=== PATIENT | male | born 1945 | race Caucasian/White ===

== ENCOUNTER → 2016-02-29 | Outpatient (REF) | payer BC | END | disposition home or self-care (01) | LOC: M LAB REF 13:25 | PROVIDERS: ATTEND Neurological Surgery | DX: Z01.812 Encounter for preprocedural laboratory examination (principal); M47.16 Other spondylosis with myelopathy, lumbar region ==

== ENCOUNTER → 2016-03-06 | Outpatient (CLI) | payer BC ==
--- NOTE | 2016-03-06 15:45 | REP ---
MR LUMBAR SPINE WITHOUT CONTRAST: HISTORY: Spondylosis. Decreased signal intensity on T2-weighted images is present in the lumbar intervertebral discs. The discs are decreased in height. These findings are consistent with disc degeneration. A diffuse disc bulge is present at the L1-2 level. There is minimal compression of the thecal sac. There is hypertrophy of the posterior articulating facets. There is compression of the right L1 nerve in the neural foramen. The left L1 nerve exits the neural foramen without compression. A diffuse disc bulge is present at the L2-3 level. There is hypertrophy of the ligamenta flava and posterior articulating facets. These findings produce moderate central canal stenosis. There is compression of the right L2 nerve in the neural foramen. The L2 nerve exits the neural foramen without compression. A diffuse disc bulge is present at the L3-4 level. There is hypertrophy of the ligamenta flava and posterior articulating facets. These findings produce severe central canal stenosis. There is compression of the L3 nerves in the neural foramina. A diffuse disc bulge and small central disc protrusion are present at the L4-5 level. There is hypertrophy of the ligamenta flava and posterior articulating facets. These findings produce severe central canal stenosis. There is compression of the L4 nerves in the neural foramina. A diffuse disc bulge and small central disc protrusion are present at the L5-S1 level. There is minimal compression of the thecal sac. There is hypertrophy of the posterior articulating facets. There is compression of the L5 nerves in the neural foramina. The conus medullaris is normal in appearance terminating at the level of the T12-L1 intervertebral disc. Increased signal intensity on T2-weighted images is present in the endplates of the L2-5 vertebral bodies. This represents degenerative change. There is scoliosis convex to the left. IMPRESSION: 1. Diffuse disc bulge at the L1-2 level with minimal thecal sac compression. There is compression of the right L1 nerve in the neural foramen. 2. Moderate central canal stenosis at the L2-3 level secondary to disc bulge, ligamentous, and facet hypertrophy. There is compression of the right L2 nerve in the neural foramen. 3. Severe central canal stenosis at the L3-4 level secondary to disc bulge, ligamentous, and facet hypertrophy. There is compression of the L3 nerves in the neural foramina. 4. Severe central canal stenosis at the L4-5 level secondary to disc bulge, disc protrusion, ligamentous, and facet hypertrophy. There is compression of the L4 nerves in the neural foramina. 5. Diffuse disc bulge and small central disc protrusion at the L5-S1 level with minimal thecal sac compression. There is compression of the L5 nerves in the neural foramina. Signed by Davonte Davis MD 03/06/2016 04:06 P
== END | disposition home or self-care (01) ==
LOC: M RAD 12:39
PROVIDERS: ATTEND Neurological Surgery
DX: M47.896 Other spondylosis, lumbar region (principal); M51.06 Intervertebral disc disorders with myelopathy, lumbar region; M48.06 Spinal stenosis, lumbar region; M51.17 Intervertebral disc disorders with radiculopathy, lumbosacral region

== ENCOUNTER → 2016-03-11 | Outpatient (CLI) | payer BC ==
[2016-03-11 13:31] LABS: BASO # 0.1 K/mm3 (0.0-0.2); BASO % 0.9 % (0.0-1.0); EOS # 0.4 K/mm3 (0.0-0.50); EOS % 4.6 % (0.0-3.0); LARGE UNSTAINED CELL # 0.2 K/mm3 (0.0-0.4); LYMPH # 2.7 K/mm3 (1.5-4.5); LYMPH % 34.3 % (24.0-44.0); MEAN CORPUSCULAR HEMOGLOBIN 31.9 pg (27.0-33.0); MEAN CORPUSCULAR HGB CONC 34.8 g/dl (32.0-36.5); MEAN CORPUSCULAR VOLUME 91.6 fl (80.0-96.0); MONO # 0.6 K/mm3 (0.0-0.8); MONO % 7.7 % (0.0-5.0); NEUTROPHILS # 3.8 K/mm3 (1.8-7.7); NEUTROPHILS % 49.5 % (36.0-66.0); PLATELET COUNT, AUTOMATED 161 k/mm3 (150-450); RED CELL DISTRIBUTION WIDTH 12.8 % (11.5-14.5); WHITE BLOOD COUNT 7.8 K/mm3 (4.0-10.0)
[2016-03-11 13:35] LABS: INR 0.96
[2016-03-11 14:16] LABS: ALBUMIN 3.7 GM/DL (3.2-5.2); ALBUMIN/GLOBULIN RATIO 1.03 (1.00-1.93); ALKALINE PHOSPHATASE 79 U/L (45-117); ALT/SGPT 20 U/L (12-78); ANION GAP 8 MEQ/L (8-16); AST/SGOT 15 U/L (15-37); BILIRUBIN,TOTAL 0.6 MG/DL (0.2-1.0); BLOOD UREA NITROGEN 11 MG/DL (7-18); CALCIUM LEVEL 9.1 MG/DL (8.8-10.2); CARBON DIOXIDE LEVEL 28 MEQ/L (21-32); CHLORIDE LEVEL 104 MEQ/L (98-107); CREATININE FOR GFR 0.87 MG/DL (0.70-1.30); GLOMERULAR FILTRATION RATE > 60.0 (>49); GLUCOSE, FASTING 126 MG/DL (80-110); POTASSIUM SERUM 4.1 MEQ/L (3.5-5.1); SODIUM LEVEL 140 MEQ/L (136-145); TOTAL PROTEIN 7.3 GM/DL (6.4-8.2)
--- NOTE | 2016-03-11 18:37 | ECGEPIP ---
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
--- NOTE | 2016-03-12 01:31 | REP ---
Clinical: Lipomatosis. Technique: PA and lateral. Comparison: 01/06/2006. Findings: Mediastinum and cardiac silhouette are within normal limits and stable. Lung manjarrez demonstrate chronic-appearing interstitial changes primarily involving the perihilar and bilateral lung bases. Subtle superimposed atelectasis cannot be excluded. However, no discrete focal consolidation, effusion, or pneumothorax appreciated. Skeletal structures demonstrate osteopenia and degenerative changes with mild chronic compression deformity at T7. Impression: Chronic-appearing interstitial changes. Cannot exclude subtle basilar atelectasis. Signed by Jorge Luis Diego MD 03/12/2016 01:22 A
== END | disposition home or self-care (01) ==
LOC: M LAB 11:54
PROVIDERS: ATTEND Neurological Surgery
DX: E88.2 Lipomatosis, not elsewhere classified (principal); J98.4 Other disorders of lung

== ENCOUNTER → 2016-04-11 | Day surgery (SDC) | payer BC, MEDICARE ==
[~2016-04-11] VITALS: Ht 165.1 cm; Wt 94.3 kg
[~2016-04-11] MED LIST: BACITRACIN PWD 50,000 UNITS VIAL As Ordered ONE; CEFUROXIME SODIUM 1.5 GM in D5W MINI-BAG PLUS 50 ML IV ONE; GLYCOPYRROLATE INJ 0.2 MG/ML 2 ML VIAL As Ordered ONE; LIDOCAINE 2% 5ML JELLY UROJET As Ordered ONE; LIDOCAINE 2% INJ 100 MG/5 ML SDV (FOR ANES.) As Ordered ONE; LIDOCAINE 2% JELLY 30 ML As Ordered ONE; LR 1,000 ML IV SCH; MIDAZOLAM INJ 2 MG/2 ML VIAL (J2250) As Ordered ONE; NEOSTIGMINE 1MG/ML 5 ML SYRINGE (J2710) As Ordered ONE; ONDANSETRON 4MG/2ML VIAL (J2405) As Ordered ONE; PHENYLephrine HCL 500 MCG/5 ML (100MCG/ML) SYRINGE (J2370) As Ordered ONE; PROPOFOL 200 MG/20 ML VIAL As Ordered ONE; ROCURONIUM BROMIDE 50 MG/5 ML VIAL As Ordered ONE; THROMBIN SOLN 20,000 UNITS KIT As Ordered ONE; TIOT18INH INH; dexameTHASONE 4 MG/ML 1ML VIAL (J1100) IV ONE; fentaNYL 250 MCG/5 ML INJECTION (J3010) As Ordered ONE; methylPREDNISolone SUSP 40 MG/ML (DEPO-medrol) VIAL (J1030) As Ordered ONE
[2016-04-11 13:25] VITALS: BP 121/67
== END ==
LOC: M SDC 06:52
PROVIDERS: ATTEND Neurological Surgery
DX: M47.16 Other spondylosis with myelopathy, lumbar region (principal); Z53.8 Procedure and treatment not carried out for other reasons
CPT/HCPCS: 63030; J0697; J2250; J2370; J2405; J2710; J3010

== ENCOUNTER 2016-04-17 07:34 | Day surgery (SDC) | payer BC, MEDICARE ==
[~2016-04-17] VITALS: Ht 165.1 cm; Wt 92.0 kg
[~2016-04-17 07:34] MED LIST changes: -BACITRACIN PWD 50,000 UNITS VIAL As Ordered ONE; -CEFUROXIME SODIUM 1.5 GM in D5W MINI-BAG PLUS 50 ML IV ONE; -GLYCOPYRROLATE INJ 0.2 MG/ML 2 ML VIAL As Ordered ONE; -LIDOCAINE 2% 5ML JELLY UROJET As Ordered ONE; -LIDOCAINE 2% INJ 100 MG/5 ML SDV (FOR ANES.) As Ordered ONE; -LIDOCAINE 2% JELLY 30 ML As Ordered ONE; -LR 1,000 ML IV SCH; -MIDAZOLAM INJ 2 MG/2 ML VIAL (J2250) As Ordered ONE; -NEOSTIGMINE 1MG/ML 5 ML SYRINGE (J2710) As Ordered ONE; -ONDANSETRON 4MG/2ML VIAL (J2405) As Ordered ONE; -PHENYLephrine HCL 500 MCG/5 ML (100MCG/ML) SYRINGE (J2370) As Ordered ONE; -PROPOFOL 200 MG/20 ML VIAL As Ordered ONE; -ROCURONIUM BROMIDE 50 MG/5 ML VIAL As Ordered ONE; -THROMBIN SOLN 20,000 UNITS KIT As Ordered ONE; -dexameTHASONE 4 MG/ML 1ML VIAL (J1100) IV ONE; -fentaNYL 250 MCG/5 ML INJECTION (J3010) As Ordered ONE; -methylPREDNISolone SUSP 40 MG/ML (DEPO-medrol) VIAL (J1030) As Ordered ONE
[2016-04-17] MEDS ORDERED: dexameTHASONE 4 MG/ML 1ML VIAL (J1100) IV ONE (07:45)
[2016-04-17] MEDS ORDERED: CEFUROXIME SODIUM 1.5 GM in D5W MINI-BAG PLUS 50 ML IV ONE (08:00)
[2016-04-17] MEDS ORDERED: GLYCOPYRROLATE INJ 0.2 MG/ML 2 ML VIAL As Ordered ONE ×2 (08:26→08:27)
[2016-04-17] MEDS ORDERED: LIDOCAINE 2% INJ 100 MG/5 ML SDV (FOR ANES.) As Ordered ONE (08:26)
[2016-04-17] MEDS ORDERED: ROCURONIUM BROMIDE 50 MG/5 ML VIAL As Ordered ONE ×2 (08:26→10:44)
[2016-04-17] MEDS ORDERED: MIDAZOLAM INJ 2 MG/2 ML VIAL (J2250) As Ordered ONE (08:26)
[2016-04-17] MEDS ORDERED: PROPOFOL 200 MG/20 ML VIAL As Ordered ONE (08:26)
[2016-04-17] MEDS ORDERED: fentaNYL 250 MCG/5 ML INJECTION (J3010) As Ordered ONE (08:26)
[2016-04-17] MEDS ORDERED: NEOSTIGMINE 1MG/ML 5 ML SYRINGE (J2710) As Ordered ONE (08:26)
[2016-04-17] MEDS ORDERED: ONDANSETRON 4MG/2ML VIAL (J2405) As Ordered ONE (08:27)
[2016-04-17] MEDS: NICOTINE 14 MG/24 HR TRANSDERMAL TD SCH (09:00)
[2016-04-17] MEDS ORDERED: LR 1,000 ML IV SCH ×2 (09:15→15:30)
[2016-04-17] MEDS ORDERED: THROMBIN SOLN 20,000 UNITS KIT As Ordered ONE (09:23)
[2016-04-17] MEDS ORDERED: methylPREDNISolone SUSP 40 MG/ML (DEPO-medrol) VIAL (J1030) As Ordered ONE (09:23)
[2016-04-17] MEDS ORDERED: BACITRACIN PWD 50,000 UNITS VIAL As Ordered ONE (09:24)
[2016-04-17] MEDS ORDERED: CEFUROXIME INJ 750 MG VIAL (J0697) As Ordered ONE (10:46)
[2016-04-17] MEDS ORDERED: HYDROmorphone HCL 2 MG/ML 1ML VIAL (J1170) As Ordered ONE (11:23)
[2016-04-17] MEDS ORDERED: THROMBIN SOLN 20,000 UNITS KIT XX ONE (11:31)
[2016-04-17] MEDS ORDERED: LEVALBUTEROL 1.25 MG/0.5 ML CONCENTRATE NEB As Ordered ONE (15:29)
[2016-04-17] MEDS ORDERED: ONDANSETRON 4MG/2ML VIAL (J2405) IV PRN (15:30)
[2016-04-17] MEDS ORDERED: MORPHINE 2 MG/ML 1ML SYRINGE IV PRN ×2 (15:30→16:00)
[2016-04-17] MEDS ORDERED: fentaNYL 100 MCG/2 ML INJECTION (J3010) IV PRN (15:30)
[2016-04-17] MEDS ORDERED: ACETAMINOPHEN TAB 650MG DOSE (2X325MG) PO PRN (16:00)
[2016-04-17] MEDS: GABAPENTIN 100 MG CAP PO SCH ×2 (16:00→21:33)
[2016-04-17] MEDS ORDERED: NORCO, ANEXSIA 5/325MG TABLET (HYDROcodone/ACETAMINOPHEN) PO PRN (16:00)
--- NOTE | 2016-04-17 16:51 | REP ---
Partial lumbar spine series: Two views: History: Lumbar spondylosis myelopathy. Intraoperative films. 6 seconds of fluoroscopy time is reported. Findings: Initial AP fluoroscopically obtained last image hold spot radiograph documents a intraoperative probe superimposed on the L4-5 disc level. A second lateral film again in the lat image hold fluoroscopic spot radiographs of the lumbar spine demonstrates an intraoperative probe at the L3-4 disc level. Signed by Prabhu Lares MD 04/17/2016 05:24 P
[2016-04-17] MEDS ORDERED: LEVALBUTEROL 1.25 MG/0.5 ML CONCENTRATE NEB INH ONE (17:00)
[2016-04-17] MEDS ORDERED: DESFLURANE 240 ML INHALANT As Ordered ONE (18:06)
[2016-04-17] MEDS ORDERED: SEVOFLURANE INHAL SOLN 250 ML BTL As Ordered ONE (18:07)
[2016-04-17 18:30] VITALS: BP 154/89
[2016-04-17] MEDS: ceFAZolin SOD 1 GM in D5W MINI-BAG PLUS 50 ML IV SCH (18:52)
[2016-04-17] MEDS: KCL 20MEQ IN D5/0.45NS 1000ML 1,000 ML IV SCH (18:52)
[2016-04-17 19:30] VITALS: BP 134/80
[2016-04-17 20:30] VITALS: BP 122/70
[2016-04-17 21:30] VITALS: BP 118/76
[2016-04-17] MEDS: NORCO, ANEXSIA 5/325MG TABLET (HYDROcodone/ACETAMINOPHEN) PO PRN (21:34)
[2016-04-17 22:30] VITALS: BP 120/65
[2016-04-18] MEDS: ceFAZolin SOD 1 GM in D5W MINI-BAG PLUS 50 ML IV SCH ×2 (00:07→04:11)
[2016-04-18] MEDS: KCL 20MEQ IN D5/0.45NS 1000ML 1,000 ML IV SCH (00:07)
[2016-04-18 04:00] VITALS: BP 115/62
[2016-04-18] MEDS: NORCO, ANEXSIA 5/325MG TABLET (HYDROcodone/ACETAMINOPHEN) PO PRN ×3 (04:11→16:08)
[2016-04-18 06:00] VITALS: BP 104/57
[2016-04-18 06:05] VITALS: O2SAT 93
[2016-04-18] MEDS ORDERED: TIOTROPIUM INHALER/CAPSULE (SPIRIVA) INH SCH (08:00)
--- NOTE | 2016-04-18 08:28 | RO ---
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 at L4/5. Partial facet Rhizotomies L2-L3 through L5-S1 bilaterally. SURGEON: Dr. Robert Rosario LAP POLISHER: Lily Higuera PA-C ANESTHESIA: FINDINGS: Please see my office notes for detailed preoperative evaluation and discussion. The patient was seen in the preoperative area with his . The patient had severe low back and lower extremity pain, both radicular and neurogenic fashion in either of his legs, mostly around L4-L5 distribution, with occasional along S1. The patient claimed he can hardly stand or walk for a few moments before he has to sit down. The patient and his were aware of all options and they understood the salvage nature of the procedure and that he is a high risk candidate for his surgery on account of his clinical and radiological findings and multiple comorbidities. 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 He also was cleared today by the urologist. The patient and his understood the scope, al options, expected outcome, sequel and complications of proposed salvage surgery. Once again, I discussed with them all possible complications of the proposed surgery and they understood no guarantees of any kind could be given and that the risk of surgery included paralysis, meningitis, spinal fluid leakage, persistence or worsening of symptoms, and/or any deficits, failure of surgery, need for multiple surgeries, pulmonary embolism (PE), deep vein thrombosis (DVT), myocardial infarction (OK), infection, bleeding, and/or any catastrophic sequela. The patient once again stated that there is no way he can live with his symptoms and is willing to take any or all risks for any possible benefit. After all matters pertaining to surgery, anesthesia and followup had been discussed with him on many occasions in the past and again today along with his he wished to proceed with surgery. Discussions were carried out in the presence of the neurosurgical PA and his . Once in the operating room, general endotracheal anesthesia was given by the anesthesia service. The area of surgery was prepped and draped in the usual sterile fashion after positioning him prone on the He frame and fluoroscopic table. Once prepped and draped, a skin incision was given centering over the spinous process of L4. C-arm was used to check the location of the spinous process of L4 as the surface and landmarks were all distorted or obscured from his obesity. The lumbodorsal fascia was reached and incised on either side of the midline. Paraspinal muscles were from midline, and held apart with the help of self retaining retractors. The sacrum was visualized. The L3-L4 interspace was thus identified, though it was also later confirmed with perioperative x-rays. There was marked hypertrophy of the exposed facets with redundant capsules. The posterolateral aspect of these redundant capsules and facets were coagulated with bipolar cautery in the hope achieving partial facet arthrotomies at L2-L3 to L5-S1 levels on either side. Attention was then paid at L3-L4 where generous suhail-semi laminectomy was performed on the left side and then interspinous ligament was removed and similar decompression was carried out on the right side. There was marked compression of the exiting nerve roots. The decompression was carried out inferiorly until the origin of the L5 nerve root and also decompression was carried out superiorly and laterally in between the two pedicles to make more room for the exiting L3 nerve root. There was a hard and firm bulging disc, contributing to the stenosis, A very small soft ligamentous bulge of the disc was seen. The thinned out annulus and ligament ligament was then opened and small pieces of degenerative disc material was removed. The disc space was entered and further degenerative disc material was also removed. The findings were worse on the left side. Attention was then paid at L4-L5 where similar findings were seen and a similar procedure was carried out. However, the posterior aspect of the interspinous ligament was preserved. With generous suhail-semi laminectomy, an attempt was made to place the [place] device, though the lamina were thinned out and caused a hairline fracture of the lamina during distraction and thus the device was not placed. During the process of decompression at L3-L4, a small dural tear was encountered which was closed with a couple of #4-0 silk sutures. Hemostasis was checked and secured. Valsalva maneuver did not cause any evidence of CSF leak. The blood loss was between 300 to 400 At this time, the wound was closed in anatomic layers. The patient tolerated the procedure satisfactorily and was sent to the recovery room in stable condition. The operative findings were discussed with the patient's in the waiting room. ALL[place]
[2016-04-18] MEDS: NICOTINE 14 MG/24 HR TRANSDERMAL TD SCH (10:13)
[2016-04-18] MEDS: GABAPENTIN 100 MG CAP PO SCH ×2 (10:13→16:04)
[2016-04-18 14:00] VITALS: BP 102/53
[2016-04-18] MEDS ORDERED: CIPR250T3 PO (15:23)
[2016-04-18] MEDS ORDERED: NORC5TAB PO (15:23)
== END 2016-04-18 16:10 | disposition home or self-care (01) ==
LOC: M MS5PR 07:34 → M SDC 07:34 → UNDOADMIN 18:42 → M MS5PR 18:42 → UNDODISIN 04-18 16:10 → M SDC 04-18 16:10
PROVIDERS: ATTEND Neurological Surgery
DX: M47.26 Other spondylosis with radiculopathy, lumbar region (principal); G97.41 Accidental puncture or laceration of dura during a procedure; J44.9 Chronic obstructive pulmonary disease, unspecified; E66.9 Obesity, unspecified; H40.9 Unspecified glaucoma; M19.90 Unspecified osteoarthritis, unspecified site; F17.210 Nicotine dependence, cigarettes, uncomplicated; Z79.899 Other long term (current) drug therapy; Z88.1 Allergy status to other antibiotic agents; Z88.8 Allergy status to other drugs, medicaments and biological substances
CPT/HCPCS: 63030; 63185; 72110; 94640; 96374; 96376; 97161; C1762; J0690; J0697; J1100; J1170; J2250; J2405; J2710; J3010

== ENCOUNTER → 2019-03-12 | Outpatient (REF) | payer BC ==
[~2019-03-12] MED LIST changes: +CIPR250T3 PO; +NORC1TAB7 PO
== END ==
LOC: M LAB LCGH 09:43
PROVIDERS: ATTEND Physician Assistant
DX: D48.5 Neoplasm of uncertain behavior of skin (principal)

== ENCOUNTER → 2021-07-09 | Outpatient (CLI) | payer BC | LOC: M PLARAD 12:51 | PROVIDERS: ATTEND Nurse Practitioner Family | DX: R91.1 Solitary pulmonary nodule (principal) | CPT/HCPCS: 78815; A9552 ==

== ENCOUNTER → 2023-02-03 | Outpatient (CLI) | payer BC | LOC: M PLARAD 13:25 | PROVIDERS: ATTEND Internal Medicine Pulmonary Disease | DX: R91.1 Solitary pulmonary nodule (principal) | CPT/HCPCS: 78815; A9552 ==

== ENCOUNTER 2023-04-09 06:17 | Day surgery (SDC) | payer BC ==
[~2023-04-09] VITALS: Ht 167.6 cm; Wt 81.6 kg
[~2023-04-09 06:17] MED LIST changes: +ACET650T3 PO; +ELIQ5TAB PO; +GABA-1171 PO; +OXYC-517 PO; +TAMS1CAP17 PO; +TREL1AER
[2023-04-09] MEDS ORDERED: LR 1,000 ML IV SCH ×2 (06:40→08:45)
[2023-04-09] MEDS ORDERED: ONDANSETRON 4MG 2ML VIAL ONE (07:00)
[2023-04-09] MEDS ORDERED: LIDOCAINE 2% 100MG/5ML SDV (FOR ANES.) ONE (07:00)
[2023-04-09] MEDS ORDERED: fentaNYL 100 MCG/2 ML INJECTION ONE (07:00)
[2023-04-09] MEDS ORDERED: SUGAMMADEX SODIUM 500 MG/5 ML VIAL (BRIDION) ONE (07:00)
[2023-04-09] MEDS ORDERED: propofoL 200 MG/20 ML VIAL ONE ×2 (07:00)
[2023-04-09] MEDS ORDERED: MIDAZOLAM INJ 2MG/2ML VIAL ONE (07:00)
[2023-04-09] MEDS ORDERED: ROCURONIUM BROMIDE 50MG/5ML VIAL ONE ×2 (07:00)
[2023-04-09] MEDS ORDERED: KETOROLAC 60MG 2ML VIAL ONE (07:00)
[2023-04-09] MEDS ORDERED: THROMBIN 5,000 UNITS VIAL As Ordered ONE (07:07)
[2023-04-09] MEDS ORDERED: EPINEPHrine 1MG/10ML SYRINGE 1.5IN As Ordered ONE (07:08)
[2023-04-09] MEDS: CETACAINE SPRAY 5GM As Ordered ONE (08:00)
[2023-04-09] MEDS ORDERED: fentaNYL 100 MCG/2 ML INJECTION IV PRN (08:45)
[2023-04-09] MEDS ORDERED: ONDANSETRON 4MG 2ML VIAL IV PRN (08:45)
[2023-04-09 10:00] VITALS: BP 130/74; TEMP 97.4; O2SAT 95
== END 2023-04-09 10:00 | disposition home or self-care (01) ==
LOC: M SDC 06:17
PROVIDERS: ATTEND Internal Medicine Pulmonary Disease
DX: C77.0 Secondary and unspecified malignant neoplasm of lymph nodes of head, face and neck (principal); C34.90 Malignant neoplasm of unspecified part of unspecified bronchus or lung; J44.9 Chronic obstructive pulmonary disease, unspecified; F17.210 Nicotine dependence, cigarettes, uncomplicated; Z86.711 Personal history of pulmonary embolism; N40.0 Benign prostatic hyperplasia without lower urinary tract symptoms; Z79.01 Long term (current) use of anticoagulants; Z79.899 Other long term (current) drug therapy; Z79.51 Long term (current) use of inhaled steroids; Z88.8 Allergy status to other drugs, medicaments and biological substances
CPT/HCPCS: 31652; 71045; 88173; 88305; J1100; J1885; J2250; J2405; J3010

== ENCOUNTER 2023-05-05 12:58 | Outpatient (RCR) | payer BC ==
[~2023-05-05 12:58] MED LIST changes: +ONDA-84 PO; +PROC10TA5 PO
== END 2023-05-18 ==
LOC: M ONCR 12:58
PROVIDERS: ATTEND General Practice
DX: Z51.0 Encounter for antineoplastic radiation therapy (principal); C34.12 Malignant neoplasm of upper lobe, left bronchus or lung

== ENCOUNTER → 2023-06-17 | Outpatient (RCR) | payer BC ==
[~2023-06-17] MED LIST changes: +LOPE1CAP5 PO
== END ==
LOC: M ONCR 05-19 12:49
PROVIDERS: ATTEND General Practice
DX: Z51.0 Encounter for antineoplastic radiation therapy (principal); C34.12 Malignant neoplasm of upper lobe, left bronchus or lung

== ENCOUNTER 2023-06-30 12:40 | Outpatient (RCR) | payer BC ==
[~2023-06-30 12:40] MED LIST changes: +DEXA4TA PO; +MAGICMW SS
== END 2023-07-18 ==
LOC: M ONCR 12:40
PROVIDERS: ATTEND General Practice
DX: Z51.0 Encounter for antineoplastic radiation therapy (principal); C34.12 Malignant neoplasm of upper lobe, left bronchus or lung

== ENCOUNTER → 2023-09-09 | Outpatient (CLI) | payer BC ==
[~2023-09-09] MED LIST changes: +NICO1DIS10; +TRAZ-252
== END ==
LOC: M PLARAD 14:47
PROVIDERS: ATTEND Specialist
DX: C34.12 Malignant neoplasm of upper lobe, left bronchus or lung (principal)
CPT/HCPCS: 78815; A9552

== ENCOUNTER 2023-12-26 11:54 | Inpatient (IN) | payer BC, MEDICARE ==
[~2023-12-26] VITALS: Ht 167.6 cm; Wt 74.7 kg
[~2023-12-26 11:54] MED LIST changes: +OXYC7.5T3
[2023-12-26 15:10] VITALS: BP 120/63; TEMP 98.3; O2SAT 90
[2023-12-26 16:08] LABS: HEMATOCRIT 38.3 % (42.0-52.0); HEMOGLOBIN 12.7 g/dl (13.5-17.5); MEAN CORPUSCULAR HEMOGLOBIN 30.5 pg (27.0-33.0); MEAN CORPUSCULAR HGB CONC 33.2 g/dl (32.0-36.5); MEAN CORPUSCULAR VOLUME 92.1 fl (80.0-96.0); RED BLOOD COUNT 4.16 10^6/uL (4.30-6.10)
[2023-12-26] MEDS: IPRATROPIUM 0.5MG/ALBUTEROL 2.5MG INH SOL UD 3ML (DUONEB) NEB SCH (16:21)
[2023-12-26 16:35] LABS: ALBUMIN 2.6 G/DL (3.2-5.2); ALKALINE PHOSPHATASE 96 U/L (40-129); ALT/SGPT 19 U/L (7.0-40); AST/SGOT 12 U/L (<34); BILIRUBIN,TOTAL 0.5 MG/DL (0.3-1.2); BLOOD UREA NITROGEN 17 MG/DL (9-23); CALCIUM LEVEL 9.1 MG/DL (8.3-10.6); CARBON DIOXIDE LEVEL 32 MMOL/L (20-31); CHLORIDE LEVEL 103 MMOL/L (98-107); GLOMERULAR FILTRATION RATE > 60.0 (>42); GLUCOSE, FASTING 172 MG/DL (74-106); POTASSIUM SERUM 4.5 MMOL/L (3.5-5.1); SODIUM LEVEL 139 MMOL/L (136-145); TOTAL PROTEIN 5.5 G/DL (5.7-8.2)
[2023-12-26 16:38] LABS: PLATELET COUNT, AUTOMATED 68 10^3/uL (150-450)
[2023-12-26] MEDS ORDERED: CEFEPIME HCL 1 GM in DEXTROSE 5% (D5W) ADV/MINI-BAG 50 ML IV SCH (17:00)
[2023-12-26] MEDS ORDERED: ALB2.5NEB INH (17:02)
[2023-12-26] MEDS ORDERED: FURO20TA2 PO (17:02)
[2023-12-26] MEDS ORDERED: ARFO15VI18 IH (17:02)
[2023-12-26] MEDS ORDERED: LACT1CAP53 PO (17:02)
[2023-12-26] MEDS ORDERED: ADME100I SC (17:02)
[2023-12-26] MEDS ORDERED: BISA5TAB15 PO (17:02)
[2023-12-26] MEDS ORDERED: BUDE0.5S6 INH (17:02)
[2023-12-26] MEDS ORDERED: NICO14DI6 TD (17:02)
[2023-12-26] MEDS ORDERED: PANT-23 PO (17:09)
[2023-12-26] MEDS ORDERED: PRED10TA2 PO (17:09)
[2023-12-26] MEDS ORDERED: OXYC-517 PO (17:09)
[2023-12-26] MEDS ORDERED: MUCI600T31 PO (17:18)
[2023-12-26] MEDS ORDERED: NYST-38 PO (17:18)
[2023-12-26] MEDS ORDERED: POLY510P14 PO (17:18)
[2023-12-26] MEDS ORDERED: DOCU100C16 PO (17:18)
[2023-12-26] MEDS ORDERED: BENG1CRE TOP (17:18)
[2023-12-26] MEDS ORDERED: BACT800T5 PO (17:24)
[2023-12-26] MEDS ORDERED: HOME MED LIST COMPLETE! XX SCH (17:30)
[2023-12-26] MEDS ORDERED: AZITHROMYCIN INJ 500 MG, VIAL MATE ADAPTER 1 EACH in NS 250 ML IV SCH (18:00)
[2023-12-26] MEDS ORDERED: CEFEPIME HCL 2 GM in DEXTROSE 5% (D5W) ADV/MINI-BAG 50 ML IV SCH (18:00)
[2023-12-26] MEDS ORDERED: BISACODYL 5MG TAB PO PRN (18:05)
[2023-12-26] MEDS: CEFEPIME HCL 2 GM in DEXTROSE 5% (D5W) ADV/MINI-BAG 50 ML IV SCH (18:31)
[2023-12-26] MEDS: FORMOTEROL FUMARATE 20 MCG/2 ML INHALATION SOLUTION (PERFOROMIST) INH SCH (19:40)
[2023-12-26] MEDS: BUDESONIDE 0.5 MG/2 ML INHALATION SUSPENSION NEB SCH (19:40)
[2023-12-26] MEDS: GLYCOPYRROLATE INJ 0.2 MG/ML 2 ML VIAL NEB SCH (19:41)
[2023-12-26] MEDS: IPRATROPIUM 0.5MG/ALBUTEROL 2.5MG INH SOL UD 3ML (DUONEB) NEB PRN (19:41)
[2023-12-26 19:52] VITALS: BP 102/59; TEMP 98.3; O2SAT 98
[2023-12-26] MEDS: AZITHROMYCIN INJ 500 MG, VIAL MATE ADAPTER 1 EACH in NS 250 ML IV SCH (19:54)
[2023-12-26] MEDS: APIXABAN 5 MG TAB (ELIQUIS) PO SCH (20:09)
[2023-12-26] MEDS: guaiFENesin ER TABLET 600 MG TAB PO SCH (20:09)
[2023-12-26] MEDS: DOCUSATE SODIUM 100MG CAPSULE PO SCH (20:09)
[2023-12-26] MEDS: oxyCODONE 5MG TAB PO PRN (20:10)
[2023-12-26] MEDS: ACETAMINOPHEN 325 MG TAB PO PRN (23:44)
[2023-12-27 03:52] VITALS: BP 98/55; TEMP 98.2; O2SAT 95
[2023-12-27 06:06] LABS: HEMATOCRIT 38.1 % (42.0-52.0); HEMOGLOBIN 12.7 g/dl (13.5-17.5); MEAN CORPUSCULAR HEMOGLOBIN 30.6 pg (27.0-33.0); MEAN CORPUSCULAR HGB CONC 33.3 g/dl (32.0-36.5); MEAN CORPUSCULAR VOLUME 91.8 fl (80.0-96.0); RED BLOOD COUNT 4.15 10^6/uL (4.30-6.10); WHITE BLOOD COUNT 7.4 10^3/uL (4.0-10.0)
[2023-12-27 06:07] LABS: PLATELET COUNT, AUTOMATED 66 10^3/uL (150-450)
[2023-12-27 06:45] LABS: ALBUMIN 2.6 G/DL (3.2-5.2); ALKALINE PHOSPHATASE 94 U/L (40-129); ALT/SGPT 15 U/L (7.0-40); AST/SGOT 12 U/L (<34); BLOOD UREA NITROGEN 14 MG/DL (9-23); CALCIUM LEVEL 8.9 MG/DL (8.3-10.6); CARBON DIOXIDE LEVEL 33 MMOL/L (20-31); CHLORIDE LEVEL 103 MMOL/L (98-107); GLOMERULAR FILTRATION RATE > 60.0 (>42); GLUCOSE, FASTING 169 MG/DL (74-106); POTASSIUM SERUM 5.3 MMOL/L (3.5-5.1); SODIUM LEVEL 137 MMOL/L (136-145); TOTAL PROTEIN 5.4 G/DL (5.7-8.2)
[2023-12-27 08:00] VITALS: BP 123/63; TEMP 97.9; O2SAT 92
[2023-12-27] MEDS: TAMSULOSIN 0.4 MG CAP PO SCH (08:59)
[2023-12-27] MEDS: PANTOPRAZOLE 40MG TAB (PROTONIX) PO SCH (08:59)
[2023-12-27] MEDS: predniSONE 10MG TAB PO SCH (08:59)
[2023-12-27] MEDS ORDERED: MIRALAX *UNIT DOSE* 17GM PACKET PO SCH (09:00)
[2023-12-27] MEDS: FUROSEMIDE 20 MG TAB PO SCH (09:00)
[2023-12-27] MEDS: MIRALAX *UNIT DOSE* 17GM PACKET PO SCH (09:00)
[2023-12-27] MEDS ORDERED: DEXTROSE 50% 50ML SYRINGE IV PRN (11:30)
[2023-12-27] MEDS ORDERED: GLUCOSE 4 GM CHEW PO PRN (11:30)
[2023-12-27] MEDS ORDERED: GLUCAGON INJ 1MG VIAL SC PRN (11:30)
[2023-12-27] MEDS: INSULIN LISPRO (NovoLOG) PER UNIT SC SCH (11:53)
[2023-12-27 12:27] LABS: HEMOGLOBIN A1c 7.8 % (4.0-6.0)
[2023-12-27] MEDS: METOCLOPRAMIDE INJ 10MG/2ML VIAL IV PRN (13:22)
[2023-12-27 16:00] VITALS: BP 117/56; TEMP 98.2; O2SAT 93
[2023-12-27 20:05] VITALS: BP 128/63; TEMP 97.7; O2SAT 95
[2023-12-28 03:47] VITALS: BP 110/61; TEMP 98.9; O2SAT 92
[2023-12-28 06:48] LABS: BLOOD UREA NITROGEN 11 MG/DL (9-23); CALCIUM LEVEL 9.1 MG/DL (8.3-10.6); CARBON DIOXIDE LEVEL 27 MMOL/L (20-31); CHLORIDE LEVEL 104 MMOL/L (98-107); CREATININE FOR GFR 0.59 MG/DL (0.70-1.30); GLOMERULAR FILTRATION RATE > 60.0 (>42); GLUCOSE, FASTING 189 MG/DL (74-106); POTASSIUM SERUM 4.3 MMOL/L (3.5-5.1); SODIUM LEVEL 137 MMOL/L (136-145)
[2023-12-28] MEDS ORDERED: PILL CUTTER 1 EACH XX ONE (08:17)
[2023-12-28 08:20] VITALS: BP 112/59; TEMP 98.1; O2SAT 93
[2023-12-28] MEDS ORDERED: LEVO1TAB40 PO (10:32)
== END 2023-12-28 12:18 | disposition home or self-care (01) | DRG 139 ==
LOC: M PCU 14:49
PROVIDERS: ADMIT Hospitalist; ATTEND Hospitalist
DX: J18.9 Pneumonia, unspecified organism (principal); J96.11 Chronic respiratory failure with hypoxia; E11.65 Type 2 diabetes mellitus with hyperglycemia; J44.0 Chronic obstructive pulmonary disease with (acute) lower respiratory infection; Z99.81 Dependence on supplemental oxygen; D69.6 Thrombocytopenia, unspecified; C34.90 Malignant neoplasm of unspecified part of unspecified bronchus or lung; J43.9 Emphysema, unspecified; G89.29 Other chronic pain; M54.9 Dorsalgia, unspecified; F17.200 Nicotine dependence, unspecified, uncomplicated; N40.0 Benign prostatic hyperplasia without lower urinary tract symptoms; J47.9 Bronchiectasis, uncomplicated; Z79.899 Other long term (current) drug therapy; Z79.01 Long term (current) use of anticoagulants; Z79.4 Long term (current) use of insulin; Z87.01 Personal history of pneumonia (recurrent); Z88.1 Allergy status to other antibiotic agents; Z88.8 Allergy status to other drugs, medicaments and biological substances